=== PATIENT | male | born 1945 | race Caucasian/White ===

== ENCOUNTER 2016-08-08 15:26 | Inpatient (IN) | payer OTHER ==
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
--- NOTE | ~2016-08-08 | OP ---
Record Of Operation [facility] [address] [place]. [address] NAME: KARL POSEY : 47 STATUS : ADM IN PAT#: [id number] AGE: 71 ADM/REG DATE : 08/08/16 MR#: [id number] REPORT SERV DATE: 08/10/16 DICTATED BY: LAN PETERS DATE: 08/10/16 REPORT STATUS : Draft TRANSCRIBED BY: MODL DATE: 08/10/16 DATE OF PROCEDURE: 08/10/2016 PREOPERATIVE DIAGNOSIS: Right septic total knee arthroplasty, status post prior limited irrigation and debridement. POSTOPERATIVE DIAGNOSIS: Right septic total knee arthroplasty, status post prior limited irrigation and debridement. PROCEDURE PERFORMED: Right open irrigation and debridement of total knee arthroplasty with polyethylene exchange and application of Stimulan beads. SURGEON: Lan Peters M.D. LAST GREASER: Yu Serna. ANESTHESIA: General. PROCEDURE IN DETAIL: The patient is clearly identified and after obtaining informed consent, he is brought to the operating room at [facility] where he is induced under general anesthesia as his right lower extremity prepped and draped in the usual manner. This concluded, after appropriate time-out procedure is performed. His previously utilized incision is then utilized to access the joint. Skin is divided. Fascial planes are elevated. A limited medial arthrotomy has been performed about four days ago which is then utilized to more fully extend for a full arthrotomy. This concluded, beads are removed. There is no evidence of anything that looks infectious. The tissues are with synovitis, this is all carefully debrided. Subsequently, the polyethylene is removed, posterior capsule is debrided, the entire joint space is inspected at this point. The implant seems well fixed. There is no evidence of any osteomyelitic change or softness of the bones around the implant. Therefore, copious irrigation is performed, tourniquet is deflated. Hemostasis is obtained from electrocautery and tranexamic acid. At this point, we changed our gowns, gloves, and redraped the patient's leg in standard fashion for two-table setup and subsequently the area is then copiously irrigated further. A permanent 4 x 16 Natural- Knee ultracongruent polyethylene is then reapplied, some with good intervals in the past, but with better stability after the patient has had these changes, and subsequently, the Stimulan beads are applied with vancomycin and tobramycin within, and the joints are then carefully closed in layers over Hemovac drain. The legs cleansed and dressed. The patient is allowed to awaken and is transferred to the recovery room in stable condition having tolerated the procedure well. ESTIMATED BLOOD LOSS: 100 mL. FLUIDS: 1100 mL. TOURNIQUET TIME: 33 minutes. Record Of Operation [place] [address] [place]. [address] NAME: KARL POSEY : 47 STATUS : ADM IN PAT#: [id number] AGE: 71 ADM/REG DATE : 08/08/16 MR#: [id number] REPORT SERV DATE: 08/10/16 DICTATED BY: LAN PETERS DATE: 08/10/16 REPORT STATUS : Draft TRANSCRIBED BY: EVAN DATE: 08/10/16 PATHOLOGY: Sent specimen. MICROBIOLOGY: Sent specimen. COMPLICATIONS: None. SPONGE AND NEEDLE COUNTS: Reportedly correct. ANTIBIOTICS: Administered appropriately preoperatively and ordered to be discontinued within 23 hours. IMPLANTS: Natural-Knee by Shekhar, new polyethylene liner, size 4/16 ultracongruent. TWYLA/EVAN Lan Peters M.D. / [id number] CC: Douglas Toro M.D.
--- NOTE | ~2016-08-08 | DS ---
Discharge Summary [facility] [address] [place]. [address] NAME: KARL POSEY : 47 STATUS : ADM IN [facility]#: [id number] AGE: 71 ADM/REG DATE : 08/08/16 MR#: [id number] REPORT SERV DATE: 08/14/16 DICTATED BY: JENNIFER NGO DATE: 08/13/16 REPORT STATUS : Draft TRANSCRIBED BY: MODL DATE: 08/13/16 ADMISSION DATE: 08/08/2016 DISCHARGE DATE: 08/13/2016 HOSPITAL COURSE: A 71-year-old male transferred from [place] for right septic knee arthritis. He was at work on Tuesday when he started getting sick at [place], started having pain in his right knee, and became more disoriented. Went to [facility]. Transferred to [facility]. Acute encephalopathy with severe sepsis due to right septic knee arthritis. Underwent washout right knee by Orthopedic Surgery at [place]. Had vancomycin and tobramycin antibiotic beads placed in his knee. The patient's surgical culture grew alpha hemolytic strep. Was transferred to [facility] on postop day [address] Peters's service with hospitalist as attending. The patient was on IV vancomycin and Zosyn from [place]. Regarding his encephalopathy, he had a CT of the brain, did not show any acute intracranial pathology, just mild bilateral anterior ethmoid sinus mucosal thickening. The patient's surgical cultures, no growth to date here. AFB smear negative. No acid-fast. Blood cultures, no growth to date. The patient was seen by Infectious Disease, Dr. Villa. Stated infected total knee arthroplasty revision with Streptococcus viridans doing better after washout antibiotics. Changed to plain penicillin IV 24 milliunits by continuous infusion q.24. Further surgery per Dr. Peters. He will need six-week course of high-dose IV antibiotics. Can be discharged once that is otherwise ready. He will get a PICC line hopefully today and be discharged. The patient was seen by Dr. Peters here on 08/10/2016, procedure. Follow up with Dr. Peters. I and D. Is postop day #3 at this point. DISCHARGE MEDICATIONS: Will include p.o. daily, as well as carvedilol 12.5 p.o. b.i.d., Colace 100 p.o. b.i.d., iron sulfate 300 p.o. t.i.d. with meals, gabapentin 300 p.o. daily and 900 p.o. q.h.s., multivitamin one tablet p.o. daily, Anoro Ellipta this 62.5/25 inhaled daily, Spiriva as well, Coumadin 5 mg p.o. daily with Coumadin sliding scale goal 2 to 3, penicillin G via PICC line through 09/17/2016 then discontinue the PICC thereafter, aspirin 81 p.o. daily, Protonix p.r.n., metformin 500 p.o. q.a.m., Percocet 5/325 p.o. q.8 p.r.n. pain. The patient is amenable for discharge. All questions were answered. It took well over 30 minutes to do. CONSULTS: ID and Orthopedics. PROCEDURES: See above. MARYT/EVAN Jennifer Ngo DO / [id number] Discharge Summary [address] [address] NAME: KARL POSEY : 47 STATUS : ADM IN [facility]#: [id number] AGE: 71 ADM/REG DATE : 08/08/16 MR#: [id number] REPORT SERV DATE: 08/14/16 DICTATED BY: JENNIFER NGO DATE: 08/13/16 REPORT STATUS : Draft TRANSCRIBED BY: MODL DATE: 08/13/16 CC: DO SPENCER Martinez
--- NOTE | ~2016-08-08 | CN ---
Consultation Report [facility] [address] [place]. [address] NAME: KARL POSEY : 47 STATUS : ADM IN [facility]#: [id number] AGE: 71 ADM/REG DATE : 08/08/16 MR#: [id number] REPORT SERV DATE: 08/09/16 DICTATED BY: AMANDEEP VILLA DATE: 08/09/16 REPORT STATUS : Draft TRANSCRIBED BY: MODL DATE: 08/09/16 INFECTIOUS DISEASE CONSULT DATE OF CONSULTATION: REASON FOR REFERRAL: Evaluation and treatment of prosthetic joint infection. HISTORY OF PRESENT ILLNESS: The patient is a 71-year-old male. He has a history of diabetes mellitus, coronary artery disease, chronic obstructive pulmonary disease, peripheral neuropathy, prostate cancer. He has had bilateral total knee arthroplasties in the past of the right, originally was done in 1998, then a revision was done last year. He did well until 08/05/2016, when he developed increasing pain in the knee and then actually became acutely confused while at work. 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 He became confused and ultimately admitted, was septic appearing with low blood pressure, fever, elevated white count. He was started empirically on vancomycin and Zosyn after blood cultures were done. He was evaluated by Orthopedics and taken to surgery for a washout of the knee on the , that culture is growing Strep viridans that is sensitive to penicillin. He remains on vancomycin, Zosyn, and had been transferred here yesterday because his surgeon Dr. Peters does not operate at [facility]. He is now lucid, but still feels very ill. He denies any trauma to the knees. He has had no unusual environmental exposures. No history of infections elsewhere. Of note, his has had a prolonged case of Clostridium difficile over the last year. PAST MEDICAL HISTORY: Otherwise unremarkable. MEDICATIONS: As mentioned above. ALLERGIES: HE HAS NO KNOWN ANTIMICROBIAL ALLERGIES. SOCIAL HISTORY: He is . Employed as a social security specialist. Nonsmoker, apparently has smoked in the past. No history of alcohol or substance abuse. FAMILY HISTORY: Noncontributory. PHYSICAL EXAMINATION: GENERAL: Chronically ill-appearing but nontoxic, elderly male, in no acute distress. Alert and oriented x3. VITAL SIGNS: His temperature here so far has been normal, is 97.1 at present with a pulse of 84; respirations 17; blood pressure 113/56; weight 108 kg. HEENT: Sclerae clear. No oral lesions. NECK: Supple. LUNGS: Clear. HEART: Regular rate and rhythm. ABDOMEN: Soft, nontender. Positive bowel sounds. Consultation Report [place] [id number] [address] NAME: KARL POSEY : 47 STATUS : ADM IN [facility]#: [id number] AGE: 71 ADM/REG DATE : 08/08/16 MR#: [id number] REPORT SERV DATE: 08/09/16 DICTATED BY: AMANDEEP VILLA DATE: 08/09/16 REPORT STATUS : Draft TRANSCRIBED BY: EVAN DATE: 08/09/16 EXTREMITIES: Left knee appears normal, the right has a surgical dressing on it which was dry, and there is mild swelling above and below it. LABORATORY DATA: White blood cell count 6.6 today, hematocrit 31.2, platelets 191, unremarkable differential. BUN and creatinine 12 and 0.91. Procalcitonin 0.72. His blood cultures from admission to [facility] remained negative, and I checked on those at the other [facility] lab. 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 RECOMMENDATIONS: 1. We will change to plain IV penicillin 24,000,000 units by continuous infusion q.24 hours. 2. Further surgery per Dr. Peters. 3. He will need a six-week course of high-dose IV antibiotics and can be discharged on that once he is otherwise ready. Finally, I will follow the patient with you. I appreciate very much your consulting on this patient. CHARISSE/EVAN andeep Villa M.D. / [id number] CC: MD Esau Noel M.D.
--- NOTE | ~2016-08-08 | DS ---
Discharge Summary [facility] [address] [place]. [address] NAME: KARL POSEY : 47 STATUS : DIS IN PAT#: [id number] AGE: 71 ADM/REG DATE : 08/08/16 MR#: [id number] REPORT SERV DATE: 08/17/16 DICTATED BY: JENNIFER NGO DATE: 08/16/16 REPORT STATUS : Draft TRANSCRIBED BY: MODL DATE: 08/16/16 ADMISSION DATE: 08/08/2016 DISCHARGE DATE: 08/16/2016 ADDENDUM The patient had delay in discharge due to insurance. His MAR has been updated regarding that. Discharge meds are Percocet, see script; Lipitor 80 p.o. daily; carvedilol 6.25 p.o. b.i.d.; Colace 100 p.o. b.i.d.; iron sulfate 300 p.o. t.i.d. with meals; Neurontin 300 p.o. daily and 900 p.o. at bedtime as well as having a NovoLog sliding scale; losartan 25 p.o. daily; multivitamin tablet 1 tablet p.o. daily; Anoro Ellipta 62.5/25 inhaled daily as well as having Spiriva Respimat 2 puff inhaled q.a.m. as well as having Coumadin sliding scale, penicillin G through 09/17/2016 via PICC line and discontinue PICC. See ID's order for additional details. Aspirin 81 p.o. daily, Protonix p.r.n., and metformin 500 p.o. q.a.m. All questions were answered. It took well over 30 minutes to do. DICTATED BY: Jennifer Ngo DO WST/ESTELLEL Jennifer Ngo DO / [id number] CC: DO LING Martinez JUSTIN AARON
[~2016-08-08 15:26] MED LIST: ASAB PO; BRILINTA90 MG PO; COREG12 PO; COUMADIN7.5 MG; CRESTOR40 MG PO; DEMA10T PO; DEMA20 PO; FISH-EPA1000 MG PO; GLUCPH PO; METHIMAZOLE10 MG OR; NEUR100 PO; NEUR300 PO; NORCO1 TA2 PO; OXYCOD PO; PROTONIX PO; STIOLTO RESPIMAT4 GM INH; TRIAMCINOLON0.13 EX; VENTOLIN HFA INH; VITAMIN D31000 UNIT PO; ZESTORETIC PO; ZOCOR40 PO; [UNRECOGNIZED DRUG - OTHER]; [UNRECOGNIZED DRUG - OTHER] TOP
[2016-08-08] MEDS ORDERED: PROTONIX PO (16:09)
[2016-08-08] MEDS ORDERED: ASAB PO (16:09)
[2016-08-08] MEDS ORDERED: COREG12 PO (16:10)
[2016-08-08] MEDS ORDERED: GLUCPH PO (16:10)
[2016-08-08] MEDS ORDERED: ZOCOR20 PO (16:11)
[2016-08-08] MEDS ORDERED: NEUR300 PO ×2 (16:12)
[2016-08-08] MEDS ORDERED: SLEEP AID OTC PO (16:14)
[2016-08-08] MEDS ORDERED: STIOLTO RESPIMAT4 GM INH (16:15)
[2016-08-08] MEDS ORDERED: VENTOLIN HFA INH (16:15)
[2016-08-08 18:17] LABS: BASOPHILS 0.6 %; BASOPHILS ABSOLUTE 0.05 10/3/uL (0.0-0.16); EOSINOPHILS 1.3 %; HEMATOCRIT 34.6 % (40.0-51.0); HEMOGLOBIN 11.5 g/dL (13.6-17.8); IMMATURE GRANULOCYTES 0.3 %; IMMATURE GRANULOCYTES ABSOLUTE 0.02 10/3/uL (0.0-0.11); LYMPHOCYTES 19.2 %; LYMPHOCYTES ABSOLUTE 1.52 10/3/uL (0.67-4.30); MANUAL DIFF NO %; MEAN CORPUS HGB CONC 33.2 g/dL (32.0-36.0); MEAN CORPUSCULAR HEMOGLOB 29.3 pg (26.0-34.0); MEAN PLATELET VOLUME 10.1 fL (9.2-13.0); MONOCYTES ABSOLUTE 0.63 10/3/uL (0.21-1.20); NEUTROPHILS 70.6 %; NEUTROPHILS ABSOLUTE 5.59 10/3/uL (2.02-8.40); PLATELET COUNT 182 10/3/uL (150-400); RBC DISTRIBUTION WIDTH 14.5 % (12.0-16.0); RED CELL COUNT 3.93 10/6/uL (4.7-6.1); WHITE BLOOD CELLS 7.9 10/3/uL (4.5-10.5)
[2016-08-08 18:30] LABS: ALKALINE PHOSPHATASE 50 U/L (45-117); CALCIUM, SERUM 9.4 MG/DL (8.5-10.4); CHLORIDE, SERUM 103 MMOL/L (96-112); CO2 (CARBON DIOXIDE) 28 MMOL/L (24-34); GFR AFRICAN AMERICAN 100 ML/MIN (>=60); GFR NON AFRICAN AMERICAN 86 ML/MIN (>=60); SGOT(AST) 16 U/L (5-40); SGPT(ALT) 11 U/L (5-65); SODIUM, SERUM 140 MMOL/L (135-148); TOTAL BILIRUBIN 0.6 MG/DL (0-1.2); TOTAL PROTEIN 7.1 G/DL (6.0-8.5)
[2016-08-08 18:31] LABS: A/G RATIO 0.7 (0.7-1.9); ALBUMIN 2.9 G/DL (3.5-5.0); BUN (BLOOD UREA NITROGEN) 9 MG/DL (6-23); GLUCOSE, SERUM 112 MG/DL (60-99); POTASSIUM, SERUM 3.7 MMOL/L (3.5-5.3)
[2016-08-08 18:32] LABS: GLOBULIN 4.2 G/DL (2.5-4.1)
[2016-08-08 20:05] LABS: PROCALCITONIN 0.72 ng/mL (<0.5)
[2016-08-09 06:39] LABS: BASOPHILS 0.9 %; BASOPHILS ABSOLUTE 0.06 10/3/uL (0.0-0.16); EOSINOPHILS 2.3 %; EOSINOPHILS ABSOLUTE 0.15 10/3/uL (0.0-0.53); HEMATOCRIT 31.2 % (40.0-51.0); HEMOGLOBIN 10.3 g/dL (13.6-17.8); IMMATURE GRANULOCYTES 0.2 %; IMMATURE GRANULOCYTES ABSOLUTE 0.01 10/3/uL (0.0-0.11); LYMPHOCYTES 23.2 %; LYMPHOCYTES ABSOLUTE 1.53 10/3/uL (0.67-4.30); MEAN CORPUSCULAR HEMOGLOB 29.2 pg (26.0-34.0); MEAN CORPUSCULAR VOLUME 88.4 fL (80-100); MEAN PLATELET VOLUME 9.7 fL (9.2-13.0); MONOCYTES 8.3 %; MONOCYTES ABSOLUTE 0.55 10/3/uL (0.21-1.20); NEUTROPHILS 65.1 %; PLATELET COUNT 191 10/3/uL (150-400); RBC DISTRIBUTION WIDTH 14.7 % (12.0-16.0); RED CELL COUNT 3.53 10/6/uL (4.7-6.1); WHITE BLOOD CELLS 6.6 10/3/uL (4.5-10.5)
[2016-08-09 06:40] LABS: MANUAL DIFF NO %
[2016-08-09 06:50] LABS: BUN (BLOOD UREA NITROGEN) 12 MG/DL (6-23); CALCIUM, SERUM 9.7 MG/DL (8.5-10.4); CHLORIDE, SERUM 104 MMOL/L (96-112); CO2 (CARBON DIOXIDE) 26 MMOL/L (24-34); CREATININE 0.91 MG/DL (0.70-1.30); GFR AFRICAN AMERICAN 99 ML/MIN (>=60); GFR NON AFRICAN AMERICAN 85 ML/MIN (>=60); GLUCOSE, SERUM 109 MG/DL (60-99); POTASSIUM, SERUM 3.8 MMOL/L (3.5-5.3); SODIUM, SERUM 138 MMOL/L (135-148)
[2016-08-10 23:16] LABS: INTERNATIONAL NORMAL RATI 1.1 UNITS (-); PROTIME (NOT ORD) 14.5 SEC (12.0-14.5)
[2016-08-11 07:18] LABS: BASOPHILS 0.6 %; BASOPHILS ABSOLUTE 0.04 10/3/uL (0.0-0.16); EOSINOPHILS 0.3 %; EOSINOPHILS ABSOLUTE 0.02 10/3/uL (0.0-0.53); HEMATOCRIT 28.1 % (40.0-51.0); HEMOGLOBIN 9.3 g/dL (13.6-17.8); IMMATURE GRANULOCYTES 0.3 %; IMMATURE GRANULOCYTES ABSOLUTE 0.02 10/3/uL (0.0-0.11); LYMPHOCYTES 13.1 %; LYMPHOCYTES ABSOLUTE 0.87 10/3/uL (0.67-4.30); MANUAL DIFF NO %; MEAN CORPUS HGB CONC 33.1 g/dL (32.0-36.0); MEAN CORPUSCULAR HEMOGLOB 29.1 pg (26.0-34.0); MEAN CORPUSCULAR VOLUME 87.8 fL (80-100); MEAN PLATELET VOLUME 9.6 fL (9.2-13.0); MONOCYTES 12.2 %; MONOCYTES ABSOLUTE 0.81 10/3/uL (0.21-1.20); NEUTROPHILS 73.5 %; PLATELET COUNT 254 10/3/uL (150-400); RBC DISTRIBUTION WIDTH 14.2 % (12.0-16.0); WHITE BLOOD CELLS 6.7 10/3/uL (4.5-10.5)
[2016-08-11 07:25] LABS: INTERNATIONAL NORMAL RATI 1.1 UNITS (-); PROTIME (NOT ORD) 14.1 SEC (12.0-14.5)
[2016-08-11 07:30] LABS: CHLORIDE, SERUM 104 MMOL/L (96-112); CREATININE 0.69 MG/DL (0.70-1.30); GFR AFRICAN AMERICAN 111 ML/MIN (>=60); GFR NON AFRICAN AMERICAN 96 ML/MIN (>=60); POTASSIUM, SERUM 4.1 MMOL/L (3.5-5.3); SODIUM, SERUM 140 MMOL/L (135-148)
[2016-08-11 07:31] LABS: BUN (BLOOD UREA NITROGEN) 7 MG/DL (6-23); CALCIUM, SERUM 8.7 MG/DL (8.5-10.4); CO2 (CARBON DIOXIDE) 32 MMOL/L (24-34); GLUCOSE, SERUM 133 MG/DL (60-99)
[2016-08-12 04:47] LABS: BASOPHILS 0.9 %; BASOPHILS ABSOLUTE 0.05 10/3/uL (0.0-0.16); EOSINOPHILS 3.5 %; EOSINOPHILS ABSOLUTE 0.19 10/3/uL (0.0-0.53); HEMATOCRIT 27.5 % (40.0-51.0); HEMOGLOBIN 8.9 g/dL (13.6-17.8); IMMATURE GRANULOCYTES 0.2 %; IMMATURE GRANULOCYTES ABSOLUTE 0.01 10/3/uL (0.0-0.11); LYMPHOCYTES ABSOLUTE 1.36 10/3/uL (0.67-4.30); MEAN CORPUS HGB CONC 32.4 g/dL (32.0-36.0); MEAN CORPUSCULAR HEMOGLOB 28.9 pg (26.0-34.0); MEAN CORPUSCULAR VOLUME 89.3 fL (80-100); MEAN PLATELET VOLUME 9.3 fL (9.2-13.0); MONOCYTES 13.6 %; MONOCYTES ABSOLUTE 0.74 10/3/uL (0.21-1.20); NEUTROPHILS 56.8 %; NEUTROPHILS ABSOLUTE 3.09 10/3/uL (2.02-8.40); PLATELET COUNT 241 10/3/uL (150-400); RBC DISTRIBUTION WIDTH 14.2 % (12.0-16.0); RED CELL COUNT 3.08 10/6/uL (4.7-6.1); WHITE BLOOD CELLS 5.4 10/3/uL (4.5-10.5)
[2016-08-12 04:48] LABS: MANUAL DIFF NO %
[2016-08-12 04:51] LABS: INTERNATIONAL NORMAL RATI 1.3 UNITS (-)
[2016-08-12 05:02] LABS: PROTIME (NOT ORD) 16.4 SEC (12.0-14.5)
[2016-08-12 05:07] LABS: BUN (BLOOD UREA NITROGEN) 6 MG/DL (6-23); CALCIUM, SERUM 8.6 MG/DL (8.5-10.4); CHLORIDE, SERUM 102 MMOL/L (96-112); CO2 (CARBON DIOXIDE) 36 MMOL/L (24-34); CREATININE 0.75 MG/DL (0.70-1.30); GFR AFRICAN AMERICAN 108 ML/MIN (>=60); GFR NON AFRICAN AMERICAN 93 ML/MIN (>=60); GLUCOSE, SERUM 111 MG/DL (60-99); PHOSPHORUS, SERUM 3.1 MG/DL (2.5-4.5); POTASSIUM, SERUM 3.8 MMOL/L (3.5-5.3); SODIUM, SERUM 139 MMOL/L (135-148)
[2016-08-13 07:36] LABS: BASOPHILS ABSOLUTE 0.06 10/3/uL (0.0-0.16); EOSINOPHILS 5.6 %; EOSINOPHILS ABSOLUTE 0.35 10/3/uL (0.0-0.53); HEMATOCRIT 27.9 % (40.0-51.0); HEMOGLOBIN 8.9 g/dL (13.6-17.8); IMMATURE GRANULOCYTES 0.5 %; IMMATURE GRANULOCYTES ABSOLUTE 0.03 10/3/uL (0.0-0.11); LYMPHOCYTES ABSOLUTE 1.61 10/3/uL (0.67-4.30); MEAN CORPUS HGB CONC 31.9 g/dL (32.0-36.0); MEAN CORPUSCULAR HEMOGLOB 28.4 pg (26.0-34.0); MEAN CORPUSCULAR VOLUME 89.1 fL (80-100); MEAN PLATELET VOLUME 9.4 fL (9.2-13.0); MONOCYTES 10.5 %; MONOCYTES ABSOLUTE 0.65 10/3/uL (0.21-1.20); NEUTROPHILS 56.4 %; PLATELET COUNT 292 10/3/uL (150-400); RBC DISTRIBUTION WIDTH 14.5 % (12.0-16.0); RED CELL COUNT 3.13 10/6/uL (4.7-6.1); WHITE BLOOD CELLS 6.2 10/3/uL (4.5-10.5)
[2016-08-13 07:39] LABS: MANUAL DIFF NO %
[2016-08-13 07:42] LABS: INTERNATIONAL NORMAL RATI 1.4 UNITS (-); PROTIME (NOT ORD) 17.3 SEC (12.0-14.5)
[2016-08-13 07:55] LABS: BUN (BLOOD UREA NITROGEN) 7 MG/DL (6-23); CHLORIDE, SERUM 104 MMOL/L (96-112); CO2 (CARBON DIOXIDE) 32 MMOL/L (24-34); CREATININE 0.73 MG/DL (0.70-1.30); GFR AFRICAN AMERICAN 109 ML/MIN (>=60); GFR NON AFRICAN AMERICAN 94 ML/MIN (>=60); GLUCOSE, SERUM 100 MG/DL (60-99); POTASSIUM, SERUM 3.8 MMOL/L (3.5-5.3); SODIUM, SERUM 142 MMOL/L (135-148)
[2016-08-14 07:32] LABS: INTERNATIONAL NORMAL RATI 1.4 UNITS (-); PROTIME (NOT ORD) 16.7 SEC (12.0-14.5)
[2016-08-14 07:37] LABS: BUN (BLOOD UREA NITROGEN) 7 MG/DL (6-23); CALCIUM, SERUM 9.4 MG/DL (8.5-10.4); CHLORIDE, SERUM 103 MMOL/L (96-112); CO2 (CARBON DIOXIDE) 32 MMOL/L (24-34); CREATININE 0.83 MG/DL (0.70-1.30); GFR AFRICAN AMERICAN 103 ML/MIN (>=60); GFR NON AFRICAN AMERICAN 89 ML/MIN (>=60); GLUCOSE, SERUM 110 MG/DL (60-99); PHOSPHORUS, SERUM 2.8 MG/DL (2.5-4.5); POTASSIUM, SERUM 4.1 MMOL/L (3.5-5.3); SODIUM, SERUM 139 MMOL/L (135-148)
[2016-08-15 05:07] LABS: INTERNATIONAL NORMAL RATI 1.5 UNITS (-); PROTIME (NOT ORD) 18.3 SEC (12.0-14.5)
[2016-08-16 07:41] LABS: BASOPHILS 0.9 %; BASOPHILS ABSOLUTE 0.07 10/3/uL (0.0-0.16); EOSINOPHILS 2.5 %; HEMATOCRIT 31.2 % (40.0-51.0); HEMOGLOBIN 10.2 g/dL (13.6-17.8); IMMATURE GRANULOCYTES 1.1 %; IMMATURE GRANULOCYTES ABSOLUTE 0.09 10/3/uL (0.0-0.11); LYMPHOCYTES 24.3 %; LYMPHOCYTES ABSOLUTE 1.98 10/3/uL (0.67-4.30); MANUAL DIFF NO %; MEAN CORPUS HGB CONC 32.7 g/dL (32.0-36.0); MEAN CORPUSCULAR HEMOGLOB 28.3 pg (26.0-34.0); MEAN CORPUSCULAR VOLUME 86.7 fL (80-100); MEAN PLATELET VOLUME 9.1 fL (9.2-13.0); MONOCYTES 10.8 %; MONOCYTES ABSOLUTE 0.88 10/3/uL (0.21-1.20); NEUTROPHILS 60.4 %; NEUTROPHILS ABSOLUTE 4.94 10/3/uL (2.02-8.40); PLATELET COUNT 459 10/3/uL (150-400); RBC DISTRIBUTION WIDTH 14.2 % (12.0-16.0); WHITE BLOOD CELLS 8.2 10/3/uL (4.5-10.5)
[2016-08-16 07:48] LABS: INTERNATIONAL NORMAL RATI 2.1 UNITS (-)
[2016-08-16 07:54] LABS: BUN (BLOOD UREA NITROGEN) 7 MG/DL (6-23); CALCIUM, SERUM 9.1 MG/DL (8.5-10.4); CHLORIDE, SERUM 103 MMOL/L (96-112); CO2 (CARBON DIOXIDE) 29 MMOL/L (24-34); CREATININE 0.98 MG/DL (0.70-1.30); GFR AFRICAN AMERICAN 90 ML/MIN (>=60); GFR NON AFRICAN AMERICAN 78 ML/MIN (>=60); GLUCOSE, SERUM 110 MG/DL (60-99); POTASSIUM, SERUM 4.3 MMOL/L (3.5-5.3); SODIUM, SERUM 139 MMOL/L (135-148)
== END 2016-08-16 15:17 | DRG 463 ==
LOC: 7NO 15:26 → PACU 08-10 22:11 → 1SO 08-10 23:07
PROVIDERS: Hospitalist; Internal Medicine; Nurse Practitioner Acute Care; Orthopaedic Surgery
PROC: 0SBC0ZZ Excision of Right Knee Joint, Open Approach (ICD-10-PCS; 2016-08-10)
PROC: 0SUC09Z Supplement Right Knee Joint with Liner, Open Approach (ICD-10-PCS; 2016-08-10)
PROC: 0SPC09Z Removal of Liner from Right Knee Joint, Open Approach (ICD-10-PCS; principal; 2016-08-10 17:15)
PROC: 02HV33Z Insertion of Infusion Device into Superior Vena Cava, Percutaneous Approach (ICD-10-PCS; 2016-08-13)
DX: T84.53XA Infection and inflammatory reaction due to internal right knee prosthesis, initial encounter (principal); G93.41 Metabolic encephalopathy; R65.20 Severe sepsis without septic shock; A41.9 Sepsis, unspecified organism; E11.42 Type 2 diabetes mellitus with diabetic polyneuropathy; J44.9 Chronic obstructive pulmonary disease, unspecified; I10 Essential (primary) hypertension; G47.33 Obstructive sleep apnea (adult) (pediatric); B95.5 Unspecified streptococcus as the cause of diseases classified elsewhere; I73.9 Peripheral vascular disease, unspecified; K21.9 Gastro-esophageal reflux disease without esophagitis; E78.5 Hyperlipidemia, unspecified; D64.9 Anemia, unspecified; I25.10 Atherosclerotic heart disease of native coronary artery without angina pectoris; Z79.82 Long term (current) use of aspirin; Z79.84 Long term (current) use of oral hypoglycemic drugs; Z79.899 Other long term (current) drug therapy; I25.2 Old myocardial infarction; Z87.891 Personal history of nicotine dependence; Z85.46 Personal history of malignant neoplasm of prostate; Z86.718 Personal history of other venous thrombosis and embolism; Z86.73 Personal history of transient ischemic attack (TIA), and cerebral infarction without residual deficits; Z91.81 History of falling
CPT/HCPCS: 36569; 70450; 73560-RT; 80048; 80053; 82962; 83735; 84100; 84145; 85025; 85610; 87015; 87040; 87070; 87075; 87102; 87116; 87205; 88300; 88304; 93005; 97110-GP; 97116-GP; 97162-GP; 97166-GO; 97530-GP; 97535-GO; A9270-GY; C1713; C1751; C1776; C1894; J0690; J1170; J1885; J2250; J2270; J2274; J2405; J2540; J2543; J2710; J2795; J3010; J3260; J3370